=== PATIENT | male | born 1925 | race Caucasian/White ===

== ENCOUNTER → 2016-09-14 | Outpatient (CLI) | payer MEDICARE, OTHER ==
--- NOTE | 2016-09-14 11:37 | RAD ---
EXAM DESCRIPTION: Knee,Left Complete CLINICAL HISTORY: 89 years Male, OSTEOARTHRITIS IMPRESSION: 4 views of the left knee including standing radiographs are submitted for interpretation. There is severe tricompartment degenerative change with complete joint space loss of the medial and lateral compartments of left knee. Osteophytes are noted on today's study. No fracture or osseous lesion seen. Small joint effusion seen within the suprapatellar recess. Ostial calcification noted on today's study. Electronically signed by: Hugh Adam MD 09/14/2016 11:36 AM CDT
== END | disposition home or self-care (01) ==
LOC: RAD 07:53
PROVIDERS: ATTEND Orthopaedic Surgery
DX: M17.12 Unilateral primary osteoarthritis, left knee (principal)

== ENCOUNTER → 2016-09-17 | Outpatient (CLI) | payer MEDICARE, OTHER | LOC: LAB.O 09:23 | PROVIDERS: ATTEND Orthopaedic Surgery | DX: Z01.818 Encounter for other preprocedural examination (principal) ==

== ENCOUNTER 2016-10-07 06:00 | Inpatient (IN) | payer MEDICARE, OTHER ==
--- NOTE | 2016-10-05 11:46 | HP ---
CHIEF COMPLAINT: left knee pain. HISTORY OF PRESENT ILLNESS: Mr. Barron is an 89-year-old male with a history of knee pain that has been going on for years. He has had right total knee replacement and is requesting left total knee replacement. After discussing the risks, benefits and alternatives to that, the patient has given informed consent. PAST SURGICAL HISTORY: 1. Total knee arthroplasty. MEDICATIONS: 1. Metoprolol. 2. Lisinopril. 3. Pantoprazole. 4. Plavix. 5. Multiple different vitamins. 6. Pravastatin. 7. Gabapentin. ALLERGIES: NO KNOWN DRUG ALLERGIES. CODE STATUS: Full code. IMMUNIZATIONS: Up to date. SOCIAL HISTORY: The patient does not drink, smoke or use any illicit drugs. FAMILY HISTORY: None pertinent to today's complaint. REVIEW OF SYSTEMS: Negative except as indicated in the History of Present Illness. PHYSICAL EXAMINATION: VITAL SIGNS: Blood pressure 135/57. Pulse 56. Height 6'. Weight 153. MENTAL STATUS: The patient is awake, alert, and is able to give a good history and participate in the physical. The patient is oriented to person, place and time. SKIN: Normal tone and turgor. HEENT: Normocephalic, atraumatic. Pupils equal, round and reactive. Mucosal membranes are moist. NECK: Normal range of motion. No thyromegaly, no lymphadenopathy. CHEST: Normal respiratory excursion. CARDIAC: Regular rate and rhythm. No murmurs, rubs or gallops. MUSCULOSKELETAL: The bilateral upper extremities show full active range of motion without deformity. He has no pain and no crepitus. Sensation is intact. Strength is 5/5. They are warm and well perfused. The right lower extremity shows full range of motion of the hip. He has full extension of the knee with flexion to about 110 degrees. Sensation is intact. He has no laxity. The left knee shows severe pain with palpation, especially medially. He has crepitus throughout his range of motion. He has full extension with flexion to about 115 degrees. He has no varus/valgus or anterior/posterior laxity. He does have slight effusion. The hip and ankle show full painless range of motion without deformity or malalignment. IMAGING: X-rays show advanced arthritis. ASSESSMENT: 1. Osteoarthritis. PLAN: The plan at this point is for total knee arthroplasty. We have discussed the risks, benefits, and alternatives to that and the patient has given informed consent. [facility][id number] [facility]
[~2016-10-07 06:00] MED LIST: LACTATED RINGERS 1,000 ML ONE; SODIUM CHL 0.9% 50ML MIN-BAG+ 50 ML IVPB ONE; SODIUM CHLORIDE 0.9% 250ML 250 ML ONE; VANCOMYCIN HCL INJ 1,000 MG VIAL IVPB ONE; ceFAZolin SODIUM 1 GM VIAL ONE
[2016-10-07] MEDS ORDERED: TRANEXAMIC ACID 1,000 MG/10 ML VIAL ONE ×2 (06:04)
[2016-10-07] MEDS ORDERED: SODIUM CHL 0.9% 100ML MINI-BAG 100 ML IVPB ONE (06:05)
[2016-10-07] MEDS ORDERED: MORPHINE SULF *EPIDURAL* 1 MG/ML VIAL INJ ONE (06:11)
[2016-10-07] MEDS ORDERED: VANCOMYCIN HCL INJ 1,000 MG VIAL IVPB ONE ×3 (06:52→19:35)
[2016-10-07] MEDS: ceFAZolin SODIUM 1 GM VIAL ONE ×2 (07:53→08:48)
[2016-10-07] MEDS: VANCOMYCIN HCL INJ 1,000 MG VIAL IVPB ONE ×2 (07:53→08:48)
[2016-10-07] MEDS ORDERED: ceFAZolin SODIUM 1 GM VIAL IRRIG ONE (07:54)
[2016-10-07] MEDS: BUPIVACAINE 0.25% W/EPI 50 ML VIAL INJ ONE ×2 (07:55→09:21)
[2016-10-07] MEDS ORDERED: SODIUM CHLORIDE 0.9% (FLUSH) 10 ML SYG IV PRN (09:05)
[2016-10-07] MEDS ORDERED: PROMETHAZINE HCL INJ 12.5 MG in SODIUM CHLORIDE 0.9% 50ML 50 ML IVPB PRN (09:05)
[2016-10-07] MEDS ORDERED: HYDROcodone 5MG/APAP 325MG 1 EA TAB PO PRN (09:05)
[2016-10-07] MEDS ORDERED: ACETAMINOPHEN 325 MG TAB PO PRN (09:05)
[2016-10-07] MEDS ORDERED: TEMAZEPAM 15 MG CAP PO PRN (09:05)
[2016-10-07] MEDS ORDERED: BISACODYL SUPPOSITORY 10 MG PR PRN (09:05)
[2016-10-07] MEDS ORDERED: TRANEXAMIC ACID INJ 1,000 MG in SODIUM CHLORIDE 0.9% 100ML 100 ML IVPB ONE (09:05)
[2016-10-07] MEDS ORDERED: NALOXONE HCL INJ 0.4 MG/ML VIAL IV PRN (09:05)
[2016-10-07] MEDS ORDERED: CYCLOBENZAPRINE HCL 10 MG TAB PO PRN (09:05)
[2016-10-07] MEDS ORDERED: MORPHINE SULFATE INJ 10 MG/ML VIAL IV PRN (09:05)
[2016-10-07] MEDS ORDERED: ZOLPIDEM TARTRATE 5 MG TAB PO PRN (09:05)
[2016-10-07] MEDS ORDERED: BENZOCAINE-MENTH LOZ (CEPACOL) 1 EA LOZ MT PRN (09:05)
[2016-10-07] MEDS ORDERED: ACETAMINOPHEN 500 MG TAB PO PRN (09:05)
[2016-10-07] MEDS ORDERED: ALUMINUM & MAGNESIUM HYDROXIDE 30 ML UD PO PRN (09:05)
[2016-10-07] MEDS ORDERED: PROMETHAZINE HCL INJ 25 MG in SODIUM CHLORIDE 0.9% 50ML 50 ML IVPB PRN (09:05)
[2016-10-07] MEDS ORDERED: ONDANSETRON INJ 4 MG/2 ML VIAL IV PRN (09:05)
[2016-10-07] MEDS ORDERED: MORPHINE SULFATE INJ 10 MG/ML VIAL IM PRN (09:05)
[2016-10-07] MEDS ORDERED: MAGNESIUM HYDROXIDE 30 ML UD PO PRN (09:05)
[2016-10-07] MEDS ORDERED: MORPHINE PCA 1 MG/ML 100ML 1 BAG in PREMIX BAG 1 BAG IVPB SCH (09:30)
[2016-10-07] MEDS ORDERED: MORPHINE PCA 1 MG/ML 100 ML BAG IVPB ONE ×2 (09:54→10:00)
[2016-10-07] MEDS ORDERED: PROPOFOL 200 MG/20 ML VIAL IV ONE (12:00)
[2016-10-07] MEDS ORDERED: ceFAZolin SODIUM 1 GM VIAL ONE ×2 (12:12→19:36)
[2016-10-07] MEDS ORDERED: SODIUM CHLORIDE 0.9% 250ML 250 ML ONE ×2 (12:13→19:34)
[2016-10-07] MEDS ORDERED: SODIUM CHLORIDE 0.9% 100ML 100 ML IVPB ONE ×2 (12:13→19:36)
[2016-10-07] MEDS: DEX 5% W/NACL 0.45% 1000ML 1,000 ML IVS PRN (12:24)
--- NOTE | 2016-10-07 15:13 | PCM.CORE ---
Physician DVT/VTE - Nurse DVT Assessment & Total Each Risk Factor Represents 5 Points: Elective Arthtroplasty Each Risk Factor Represents 3 Points: Age over 75 years, Medical PT with Hx of [place], CHF, Severe infection/sepsis Each Risk Factor Represents 1 Point: Medical PT at Bed Rest DVT Assessment Score: 12 - 5 or more Very High Risk Treatments: Early Ambulation *, Sequential Compression Device Pharmacological: Enoxaparin 30mg SQ BID
[2016-10-07] MEDS: IV SET AND CAP CHANGE INJ INJ SCH (15:30)
[2016-10-07] MEDS: ceFAZolin SODIUM 2 GM in SODIUM CHLORIDE 0.9% 100ML 100 ML IVPB SCH (15:30)
--- NOTE | 2016-10-07 16:32 | PN ---
DATE: 10/07/16 SUBJECTIVE: Mr. Barron is doing very well. He is comfortable right now. OBJECTIVE: He is afebrile. Vital signs are stable. Dressing is clean, dry and intact. ASSESSMENT: 1. Status post total knee arthroplasty. PLAN: The plan is to begin weightbearing as tolerated on postoperative day 1. #[id number] [facility]
--- NOTE | 2016-10-07 16:40 | OP ---
DATE OF PROCEDURE: 10/07/16 PREOPERATIVE DIAGNOSIS: 1. Left knee osteoarthritis. POSTOPERATIVE DIAGNOSIS: 1. Left knee osteoarthritis. PROCEDURE: 1. Left total knee arthroplasty. SURGEON: Jaime Drake M.D. CANDY MAKER HELPER: Oniel Gibbs CST, -Yamilex ANESTHESIA: General anesthesia. COMPLICATIONS: None. FINDINGS: Severe arthritis of the knee. INDICATION FOR PROCEDURE: Mr. Barron has a long history of knee pain that has been getting progressively worse. Mr. Barron has had right total knee replacement and because of his ongoing left knee pain, he has requested left knee replacement. After discussing the risks, benefits, and alternatives to that he has given informed consent for that. DESCRIPTION OF PROCEDURE: The patient was brought to the Operating Room and placed in supine position. General anesthesia was induced and the patient's leg was sterilely prepped and draped. Following prepping and draping, the distal femur was exposed and using an intramedullary guide, the distal femoral cut was made. The appropriate sized cutting block was measured, pinned into place, and the anterior, posterior, and chamfer cuts were made. The ACL was transected and the tibia was subluxed. Both the medial and lateral menisci were removed. An intramedullary guide was used to make the proximal tibial cut. The appropriate sized base plate was placed and a trial polyethylene was placed. The trial femur was placed, the knee was reduced, and the knee was taken through a range of motion. The knee was stable in anterior, posterior, varus and valgus stress. The patella tracked anatomically without evidence of subluxation or dislocation. After trialing, the trial components were removed and the bony surfaces were thoroughly irrigated with saline. Following irrigation, the surfaces were dried and the final components were cemented into place. The excess cement was removed and the remaining cement was allowed to cure. The knee was again taken through a range of motion to confirm stability. The wound was then irrigated with saline and closure was performed using PDS to approximate the arthrotomy followed by closure of the subcutaneous tissues with a combination of running and interrupted Monocryl sutures. Sterile dressing was placed. The patient was awoken from anesthesia and taken to Recovery. POSTOPERATIVE INSTRUCTIONS: The patient will be weightbearing as tolerated on postoperative day 1. COMPONENTS: Testif triathlon knee size 7 femur, size 6 tibia, 11 mm insert. #[id number] [facility]
[2016-10-07] MEDS: VANCOMYCIN HCL INJ 1,000 MG in SODIUM CHLORIDE 0.9% 250ML 250 ML IVPB SCH (17:37)
[2016-10-07] MEDS ORDERED: PANTOPRAZOLE SODIUM TAB 40 MG PO ONE (19:35)
[2016-10-07] MEDS ORDERED: DOCUSATE CALCIUM 240 MG CAP ONE (19:35)
[2016-10-07] MEDS ORDERED: GABAPENTIN 300 MG CAP ONE (19:35)
[2016-10-07] MEDS ORDERED: ENOXAPARIN SODIUM 30 MG/0.3 ML SYG SUBCU ONE (19:35)
[2016-10-07] MEDS: DOCUSATE CALCIUM 240 MG CAP PO SCH (20:38)
[2016-10-07] MEDS: GABAPENTIN 300 MG CAP PO SCH (20:38)
[2016-10-07] MEDS: ENOXAPARIN SODIUM 30 MG/0.3 ML SYG SUBCU SCH (22:00)
[2016-10-08] MEDS: ceFAZolin SODIUM 2 GM in SODIUM CHLORIDE 0.9% 100ML 100 ML IVPB SCH ×2 (00:15→08:57)
[2016-10-08] MEDS ORDERED: PRAVASTATIN SODIUM 20 MG TAB ONE (05:30)
[2016-10-08] MEDS ORDERED: ASPIRIN TABLET 325 MG TAB ONE (05:30)
[2016-10-08] MEDS ORDERED: LISINOPRIL 5 MG TAB ONE (05:30)
[2016-10-08] MEDS ORDERED: METOPROLOL TARTRATE 50 MG TAB ONE (05:30)
[2016-10-08] MEDS: VANCOMYCIN HCL INJ 1,000 MG in SODIUM CHLORIDE 0.9% 250ML 250 ML IVPB SCH (05:55)
[2016-10-08] MEDS: HYDROcodone 10MG/APAP 325MG 1 EA TAB PO PRN ×2 (06:18→14:07)
[2016-10-08] MEDS: ASPIRIN TABLET 325 MG TAB PO SCH (06:18)
[2016-10-08] MEDS: PRAVASTATIN SODIUM 20 MG TAB PO SCH (06:18)
[2016-10-08] MEDS: METOPROLOL TARTRATE 50 MG TAB PO SCH (06:18)
[2016-10-08] MEDS: PANTOPRAZOLE SODIUM TAB 40 MG PO SCH (06:18)
[2016-10-08] MEDS: LISINOPRIL 5 MG TAB PO SCH (06:18)
--- NOTE | 2016-10-08 07:41 | RAD ---
EXAM DESCRIPTION: Knee,Left 2 or More Views CLINICAL HISTORY: 89 years,Male,TKA COMPARISON: September 14, 2016 FINDINGS: The left knee demonstrates recent total knee arthroplasty which appears unremarkable. No fracture seen. There is subcutaneous emphysema and swelling seen. Small amount of joint fluid.. IMPRESSION: Unremarkable recent left total knee arthroplasty Electronically signed by: Janusz Sams MD 10/08/2016 7:42 AM CDT
--- NOTE | 2016-10-08 07:50 | CONS ---
SUPERVISING PHYSICIAN: Emeterio Villalobos MD CHIEF COMPLAINT: Status post left total knee arthroplasty, postoperative care. HISTORY OF PRESENT ILLNESS: Mr. Barron is an 89-year-old, male patient with a longstanding history of knee pain for multiple years. He has previously had a right total knee replacement. He has continued to have pain in his left knee and is very active and has had multiple attempts at conservative treatment in the outpatient setting to receive symptomatic pain relief, but has failed to do so. He has now requested that he have a left total knee replacement by Dr. Drake. The patient had a left total knee arthroplasty performed today and was seen immediate postoperatively to assist in medical management. The patient was seen and found to be in stable condition. PAST MEDICAL HISTORY: 1. Hyperlipidemia. 2. Gastroesophageal reflux disease. 3. Coronary artery disease. 4. Hypertension. PAST SURGICAL HISTORY: 1. Coronary artery bypass grafts. 2. Cholecystectomy. 3. Right knee cyst excision. 4. Right total knee arthroplasty on 11/13/14. 5. Left total knee arthroplasty on 10/07/16 as noted above. CURRENT MEDICATIONS: 1. Neurontin 300 mg at bedtime. 2. Protonix 40 mg at breakfast. 3. Lisinopril 5 mg daily. 4. Plavix 75 mg in the morning. 5. Aspirin 325 mg daily. 6. Metoprolol tartrate 50 mg daily. 7. Pravastatin sodium 40 mg daily. ALLERGIES: NO KNOWN DRUG ALLERGIES. FAMILY HISTORY: Noncontributory. SOCIAL HISTORY: The patient has a history of smoking in the past approximately one pack a day, but quit many years previous. He denies any history of alcohol or illicit drug use. He does live in [place], [place]. 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 He is very active. REVIEW OF SYSTEMS: As per history of present illness. PHYSICAL EXAMINATION: VITAL SIGNS: Temperature 98.6. Pulse 53. Blood pressure 150/76. Respirations 18. O2 saturation 100% on nasal cannula 2 liters at rest. Admission weight 69.8 kg. GENERAL: The patient is seen in immediate postoperative state. He is alert and oriented times 3. He appears to be quite comfortable. HEENT: Hearing aids bilaterally. Oropharynx is pink, moist without any lesions. NECK: No jugular venous distention noted. CHEST: Lungs clear to auscultation bilaterally without any rhonchi, wheezes, or rales. CARDIOVASCULAR: Regular rate and rhythm without any appreciable murmurs, gallops, or rubs. ABDOMEN: Soft, nontender. Positive bowel sounds. EXTREMITIES: There is no cyanosis, clubbing or edema. Left knee has a bulky surgical dressing in place and as well has an Iceman. Pulses distally are strong. Capillary refill is brisk. NEUROLOGIC: The patient is alert and oriented times three. LABORATORY: Postoperative hemoglobin and hematocrit pending. ASSESSMENT: 1. Postoperative 0 from left total knee arthroplasty, having failed to respond to outpatient therapy and conservative measures, now requiring surgical intervention for pain control with surgery performed by Dr. Jaime Drake, orthopedic surgeon. 2. Gastroesophageal reflux disease. 3. Coronary artery disease. 4. Hypertension. PLAN: The patient will be followed medically as he progresses through his physical therapy along with physical therapy department and under the guidance of Dr. Jaime Drake, orthopedic surgeon. We will follow the patient closely medically and treat appropriately. Anticipate length of stay to be at least 2 to 3 days with possible discharge on this Wednesday or Wednesday. Until then, we will continue to monitor the patient closely and treat appropriately. #[id number] [facility]
[2016-10-08] MEDS ORDERED: SODIUM CHLORIDE 0.9% 100ML 100 ML IVPB ONE (08:38)
[2016-10-08] MEDS ORDERED: ceFAZolin SODIUM 1 GM VIAL ONE (08:38)
--- NOTE | 2016-10-08 08:54 | PN ---
DATE: 10/08/16 SUBJECTIVE: Mr. Barron is doing well and we just helped him get out of bed and he is having minimal discomfort. OBJECTIVE: Afebrile. Vital signs stable. Dressing is clean, dry and intact. ASSESSMENT: Status post total knee arthroplasty. PLAN: The plan is to continue with therapy today for weight-bearing as tolerated. #[id number] [facility]
[2016-10-08] MEDS: MAGNESIUM OXIDE 400 MG TAB PO SCH (08:58)
[2016-10-08] MEDS: CLOPIDOGREL 75 MG TAB PO SCH (08:58)
[2016-10-08] MEDS: ENOXAPARIN SODIUM 30 MG/0.3 ML SYG SUBCU SCH ×2 (08:59→20:31)
--- NOTE | 2016-10-08 15:46 | PN ---
DATE: 10/08/16 SUPERVISING PHYSICIAN: Emeterio Villalobos M.D. SUBJECTIVE: The patient is doing well. Just got off the CPM. Says his pain is well controlled. He has had just a little bit of nausea. He has been afebrile and has a good appetite. OBJECTIVE: VITAL SIGNS: T max 98.3, pulse 66, blood pressure 101/49, respirations 18, satting 100% on room air. I's and O's are fairly well balanced. Weight 69.8 kg. CHEST: Clear to auscultation. HEART: Regular rate and rhythm. ABDOMEN: Soft, non-tender. Positive bowel sounds. EXTREMITIES: Left knee has a surgical dressing in place. Pulses distally are strong with capillary refill brisk. NEUROLOGIC: He is alert and oriented times three. LABORATORY: Postoperative H&H shows hemoglobin 9.5, hematocrit 29.0. ASSESSMENT: 1. Postoperative day 1 from left total knee arthroplasty having failed to respond to outpatient therapy and conservative measures requiring surgical intervention for pain control with surgery performed by Dr. Jaime Drake. 2. Gastroesophageal reflux disease. 3. Coronary artery disease. 4. Hypertension. PLAN: Will continue to follow the patient medically as he progresses through his physical therapy portion of recovery. Anticipation of discharge possibly Wednesday or Wednesday. Until discharge, will continue to monitor and treat appropriately. #[id number] [facility]
[2016-10-08] MEDS: DEX 5% W/NACL 0.45% 1000ML 1,000 ML IVS PRN (19:52)
[2016-10-08] MEDS: DOCUSATE CALCIUM 240 MG CAP PO SCH (20:31)
[2016-10-08] MEDS: GABAPENTIN 300 MG CAP PO SCH (20:31)
[2016-10-09] MEDS: ASPIRIN TABLET 325 MG TAB PO SCH (06:19)
[2016-10-09] MEDS: METOPROLOL TARTRATE 50 MG TAB PO SCH (06:19)
[2016-10-09] MEDS: PANTOPRAZOLE SODIUM TAB 40 MG PO SCH (06:19)
[2016-10-09] MEDS: PRAVASTATIN SODIUM 20 MG TAB PO SCH (06:19)
[2016-10-09] MEDS: LISINOPRIL 5 MG TAB PO SCH (06:19)
[2016-10-09] MEDS: HYDROcodone 10MG/APAP 325MG 1 EA TAB PO PRN (06:20)
[2016-10-09] MEDS: MAGNESIUM OXIDE 400 MG TAB PO SCH (08:23)
[2016-10-09] MEDS: ENOXAPARIN SODIUM 30 MG/0.3 ML SYG SUBCU SCH ×2 (08:23→20:34)
[2016-10-09] MEDS: CLOPIDOGREL 75 MG TAB PO SCH (08:23)
[2016-10-09] MEDS: SODIUM CHLORIDE 0.9% (FLUSH) 10 ML SYG IV SCH ×2 (08:24→20:27)
--- NOTE | 2016-10-09 10:14 | PN ---
DATE: 10/09/16 SUBJECTIVE: He has no complaints today. OBJECTIVE: Afebrile. Vital signs stable. Wound is clean. There are no signs or symptoms of infection. ASSESSMENT: Status post total knee arthroplasty. PLAN: The plan at this point is for him to continue with therapy and potentially be discharged tomorrow. [facility][id number] [facility]
--- NOTE | 2016-10-09 19:10 | PN ---
DATE: 10/09/16 SUPERVISING PHYSICIAN: Emeterio Villalobos M.D. SUBJECTIVE: The patient is sitting in the bedside chair. He did well. He actually ambulated this morning and is having good pain control. He remains afebrile. OBJECTIVE: VITAL SIGNS: T max 98.2, pulse 72, blood pressure 114/72, respirations 18, satting 94% on room air. I's and O's show a positive balance of 209 with 1059 in, 850 out. Weight is 69.83 kg. CHEST: Clear to auscultation bilaterally. HEART: Regular rate and rhythm. ABDOMEN: Soft, non- tender. Positive bowel sounds. EXTREMITIES: No clubbing, cyanosis or edema. Left knee has a dressing in place that is clean and dry. There are no signs of infection. Pulses distally are strong. Capillary refill is brisk. NEUROLOGIC : He is alert and oriented times three. ASSESSMENT: 1. Postoperative day 2 from left total knee arthroplasty having failed to respond to outpatient therapy and conservative measures requiring surgical intervention for pain control with surgery performed by Dr. Jaime Drake. 2. Gastroesophageal reflux disease. 3. Coronary artery disease. 4. Hypertension. PLAN: Hopefully the patient can be discharged tomorrow as he is progressing well. There is discussion that he possibly could need an extra day or 2 of maybe Swing Bed, but we will reassess in the morning and see what Physical Therapy has to say. The patient is doing well and anxious to go home. His pain control is adequate. Until he is discharged, we will continue to monitor and treat appropriately. [facility][id number] [facility]
[2016-10-09] MEDS: DOCUSATE CALCIUM 240 MG CAP PO SCH (20:27)
[2016-10-09] MEDS: GABAPENTIN 300 MG CAP PO SCH (20:27)
[2016-10-10] MEDS: LISINOPRIL 5 MG TAB PO SCH (06:10)
[2016-10-10] MEDS: METOPROLOL TARTRATE 50 MG TAB PO SCH (06:10)
[2016-10-10] MEDS: ASPIRIN TABLET 325 MG TAB PO SCH (06:10)
[2016-10-10] MEDS: PRAVASTATIN SODIUM 20 MG TAB PO SCH (06:10)
[2016-10-10] MEDS: PANTOPRAZOLE SODIUM TAB 40 MG PO SCH (06:10)
[2016-10-10] MEDS: CLOPIDOGREL 75 MG TAB PO SCH (08:54)
[2016-10-10] MEDS: HYDROcodone 10MG/APAP 325MG 1 EA TAB PO PRN ×2 (08:54→13:57)
[2016-10-10] MEDS: MAGNESIUM OXIDE 400 MG TAB PO SCH (08:54)
[2016-10-10] MEDS: SODIUM CHLORIDE 0.9% (FLUSH) 10 ML SYG IV SCH ×2 (08:54→20:10)
[2016-10-10] MEDS: ENOXAPARIN SODIUM 30 MG/0.3 ML SYG SUBCU SCH ×2 (08:55→21:35)
[2016-10-10] MEDS: IV SET AND CAP CHANGE INJ INJ SCH (08:55)
--- NOTE | 2016-10-10 15:41 | PN ---
DATE: 10/10/16 SUBJECTIVE: Mr. Barron subjectively is doing pretty well. He is actually up walking right now. He is with minimal assist at this time. OBJECTIVE: He is afebrile. Vital signs are stable. Wound is clean. There are no signs or symptoms of infection. ASSESSMENT: 1. Status post total knee arthroplasty. PLAN: The plan at this point is for him to continue on weightbearing as tolerated and continue with physical therapy. Will make a decision over the next day or 2 on when he is to be discharged. #[id number] [facility]
--- NOTE | 2016-10-10 19:18 | PN ---
DATE: 10/10/16 SUPERVISING PHYSICIAN: Stiven Aaron M.D. SUBJECTIVE: The patient continues to make progress but slow in regards to rehabilitation. He remains afebrile. He has had good pain control. OBJECTIVE: VITAL SIGNS: T max 99.0, pulse 74, blood pressure 116/62, respirations 18, satting 96% on room air. I's and O's show a negative balance of 875 with 1200 in, 2075 out. Weight 69.83 kg. CHEST: Lungs are clear to auscultation. HEART: Regular rate and rhythm. ABDOMEN: Soft, non-tender. Positive bowel sounds. He has not yet had a bowel movement. EXTREMITIES: No clubbing, cyanosis or edema. Left knee has a bandage in place. There is some mild erythema but no obvious signs of infection. Pulse distally is strong. Capillary refill is brisk. NEUROLOGIC: He is alert and oriented times three. ASSESSMENT: 1. Postoperative day 3 from left total knee arthroplasty having failed to respond to outpatient therapy and conservative measures requiring surgical intervention for pain control with surgery performed by Dr. Jaime Drake. 2. Gastroesophageal reflux disease. 3. Coronary artery disease. 4. Hypertension. PLAN: Plan to give the patient Dulcolax and Milk of Magnesia tonight to assist with bowel movement. Will discuss with Physical Therapy today. The patient has slowly progressed but they will work with him in the morning and determine whether or not he is a candidate to go to Swing Bed or have an additional 1 to 2 days of therapy and to go home from that point. Until then, will continue to monitor the patient closely and treat appropriately. #[id number] [facility]
[2016-10-10] MEDS: DOCUSATE CALCIUM 240 MG CAP PO SCH (20:10)
[2016-10-10] MEDS: GABAPENTIN 300 MG CAP PO SCH (20:11)
[2016-10-10] MEDS ORDERED: MAGNESIUM HYDROXIDE 30 ML UD PO ONE (21:00)
[2016-10-10] MEDS ORDERED: BISACODYL SUPPOSITORY 10 MG PR ONE (21:00)
[2016-10-11] MEDS: PANTOPRAZOLE SODIUM TAB 40 MG PO SCH (06:39)
[2016-10-11] MEDS: ASPIRIN TABLET 325 MG TAB PO SCH (06:39)
[2016-10-11] MEDS: LISINOPRIL 5 MG TAB PO SCH (06:39)
[2016-10-11] MEDS: METOPROLOL TARTRATE 50 MG TAB PO SCH (06:39)
[2016-10-11] MEDS: PRAVASTATIN SODIUM 20 MG TAB PO SCH (06:39)
[2016-10-11] MEDS: ENOXAPARIN SODIUM 30 MG/0.3 ML SYG SUBCU SCH (08:41)
[2016-10-11] MEDS: MAGNESIUM OXIDE 400 MG TAB PO SCH (08:41)
[2016-10-11] MEDS: CLOPIDOGREL 75 MG TAB PO SCH (08:41)
[2016-10-11] MEDS: SODIUM CHLORIDE 0.9% (FLUSH) 10 ML SYG IV SCH (08:45)
[2016-10-11 11:48] VITALS: BP 155/64; TEMP 98.7; O2SAT 98
--- NOTE | 2016-10-11 15:38 | DS ---
DISCHARGE DIAGNOSIS ACUTE CARE/ADMISSION DIAGNOSIS SWING BED: 1. Status post left total knee arthroplasty secondary to advanced osteoarthritis. 2. Generalized weakness and debility. 3. Coronary artery disease. 4. Hypertension. 5. Hyperlipidemia. 6. Gastroesophageal reflux disease. HOSPITAL COURSE/HISTORY OF PRESENT ILLNESS: Mr. Barron is an 89 year-old man who underwent an elective total knee replacement on 10/07/16. Mr. Barron has advanced age, however he remains very active. 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 His left knee has undergone previous surgeries, multiple aspirations and joint injections, and he has ultimately failed repeat Synvisc and steroid shots in the knee. He has had arthroscopic surgery done on the knee that failed to give any senior living benefit. Due to all of these factors, myself as his primary care physician, Dr. Drake, his orthopedic surgeon, and the patient discussed this at length and felt that he would benefit from the knee replacement. This was undertaken on here at the [facility] and the patient's surgery was uneventful. Postoperatively, he has had lots more pain than he anticipated but otherwise has done okay. Due to his advanced age and just some generalized decline and maybe a little bit of underlying dementia, the patient's postoperative course has gone a little slower than we had anticipated. He still has a good potential for recovery and therefore his rehabilitation potential is felt to be good. We are going to put him on Swing Bed today so we can continue therapy here at the hospital. The patient and all of those involved in his care are in agreement. PAST MEDICAL HISTORY: 1. Coronary artery disease. 2. Osteoarthritis. 3. Hyperlipidemia. 4. Hypertension. 5. Gastroesophageal reflux disease. PAST SURGICAL HISTORY: 1. Right total knee arthroplasty in October 2014. 2. Left total knee arthroplasty 10/07/16. 3. Coronary artery bypass graft. 4. Cholecystectomy. 5. Arthroscopic surgery on the knees. CURRENT MEDICATIONS: 1. Tylenol 650 mg p.r.n. 2. Maalox 30 mL every 4 hours p.r.n. 3. Dulcolax suppository 10 mg p.r.n. 4. Surfak 240 mg every day. 5. Swanquarter 5/325 mg every 4 hours p.r.n. 6. Milk of Magnesia 30 mL p.r.n. 7. Plavix 75 mg every day. 8. Aspirin 325 mg every day. 9. Pravastatin 40 mg every day. 10. Metoprolol tartrate 50 mg every day. 11. Protonix 40 mg every day. 12. Lisinopril 5 mg every day. 13. Neurontin 300 mg every h.s. ALLERGIES: NO KNOWN DRUG ALLERGIES. FAMILY HISTORY: Noncontributory. PHYSICAL EXAMINATION: VITAL SIGNS: Temperature 99.8, pulse 74, blood pressure 128/56. GENERAL: The patient is awake, alert and in no distress. HEENT: Oropharynx is clear. NECK: Supple. CHEST: Clear to auscultation. CARDIOVASCULAR: Regular rate and rhythm. ABDOMEN: Soft, nondistended. There is mild diffuse tenderness without rebound or guarding. EXTREMITIES: The left knee has a little erythema surrounding the wound that looks appropriate for this postoperative stage. There is no drainage from the wound. He has a limited range of motion. There is no peripheral edema. NEUROLOGIC: Alert and oriented times three. PSYCHIATRIC: He is depressed. He becomes tearful during the interview. ASSESSMENT: See the list at the beginning of this dictation. PLAN: The patient will be placed on Swing Bed. His medications as listed above will all be continued. We will work hard to continue pain control. He is a little constipated right now, so we will use the p.r.n. medications to get his bowels moving. He will definitely benefit from probably 3 to 5 days of Swing Bed rehabilitation. #[id number] [facility]
== END 2016-10-11 11:50 | disposition swing bed (61) | DRG 470 ==
LOC: AMB 06:00 → MS 11:00
PROVIDERS: ADMIT Orthopaedic Surgery; ATTEND Orthopaedic Surgery
PROC: 0SRD0J9 Replacement of Left Knee Joint with Synthetic Substitute, Cemented, Open Approach (ICD-10-PCS; principal; 2016-10-07 07:00)
DX: M17.12 Unilateral primary osteoarthritis, left knee (principal); I12.9 Hypertensive chronic kidney disease with stage 1 through stage 4 chronic kidney disease, or unspecified chronic kidney disease; N18.3 Chronic kidney disease, stage 3 (moderate); E78.5 Hyperlipidemia, unspecified; I25.10 Atherosclerotic heart disease of native coronary artery without angina pectoris; K21.9 Gastro-esophageal reflux disease without esophagitis; F17.220 Nicotine dependence, chewing tobacco, uncomplicated; Z96.651 Presence of right artificial knee joint; Z95.0 Presence of cardiac pacemaker; Z95.1 Presence of aortocoronary bypass graft; Z79.02 Long term (current) use of antithrombotics/antiplatelets; Z79.82 Long term (current) use of aspirin; Z79.899 Other long term (current) drug therapy; Z97.4 Presence of external hearing-aid

== ENCOUNTER 2016-10-11 12:21 | Inpatient (IN) | payer MEDICARE, OTHER ==
[2016-10-11] MEDS ORDERED: ACETAMINOPHEN 325 MG TAB PO PRN (12:45)
[2016-10-11] MEDS ORDERED: BISACODYL SUPPOSITORY 10 MG PR PRN (12:46)
[2016-10-11] MEDS ORDERED: ALUMINUM & MAGNESIUM HYDROXIDE 30 ML UD PO PRN (12:46)
[2016-10-11] MEDS ORDERED: HYDROcodone 5MG/APAP 325MG 1 EA TAB PO PRN (12:47)
[2016-10-11] MEDS ORDERED: MAGNESIUM HYDROXIDE 30 ML UD PO PRN (12:48)
--- NOTE | 2016-10-11 15:39 | HP ---
DISCHARGE DIAGNOSIS ACUTE CARE/ADMISSION DIAGNOSIS SWING BED: 1. Status post left total knee arthroplasty secondary to advanced osteoarthritis. 2. Generalized weakness and debility. 3. Coronary artery disease. 4. Hypertension. 5. Hyperlipidemia. 6. Gastroesophageal reflux disease. HOSPITAL COURSE/HISTORY OF PRESENT ILLNESS: Mr. Barron is an 89 year-old man who underwent an elective total knee replacement on 10/07/16. Mr. Barron has advanced age, however he remains very active. 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 His left knee has undergone previous surgeries, multiple aspirations and joint injections, and he has ultimately failed repeat Synvisc and steroid shots in the knee. He has had arthroscopic surgery done on the knee that failed to give any chcf benefit. Due to all of these factors, myself as his primary care physician, Dr. Drake, his orthopedic surgeon, and the patient discussed this at length and felt that he would benefit from the knee replacement. This was undertaken on here at the [facility] and the patient's surgery was uneventful. Postoperatively, he has had lots more pain than he anticipated but otherwise has done okay. Due to his advanced age and just some generalized decline and maybe a little bit of underlying dementia, the patient's postoperative course has gone a little slower than we had anticipated. He still has a good potential for recovery and therefore his rehabilitation potential is felt to be good. We are going to put him on Swing Bed today so we can continue therapy here at the hospital. The patient and all of those involved in his care are in agreement. PAST MEDICAL HISTORY: 1. Coronary artery disease. 2. Osteoarthritis. 3. Hyperlipidemia. 4. Hypertension. 5. Gastroesophageal reflux disease. PAST SURGICAL HISTORY: 1. Right total knee arthroplasty in October 2014. 2. Left total knee arthroplasty 10/07/16. 3. Coronary artery bypass graft. 4. Cholecystectomy. 5. Arthroscopic surgery on the knees. CURRENT MEDICATIONS: 1. Tylenol 650 mg p.r.n. 2. Maalox 30 mL every 4 hours p.r.n. 3. Dulcolax suppository 10 mg p.r.n. 4. Surfak 240 mg every day. 5. Dilliner 5/325 mg every 4 hours p.r.n. 6. Milk of Magnesia 30 mL p.r.n. 7. Plavix 75 mg every day. 8. Aspirin 325 mg every day. 9. Pravastatin 40 mg every day. 10. Metoprolol tartrate 50 mg every day. 11. Protonix 40 mg every day. 12. Lisinopril 5 mg every day. 13. Neurontin 300 mg every h.s. ALLERGIES: NO KNOWN DRUG ALLERGIES. FAMILY HISTORY: Noncontributory. PHYSICAL EXAMINATION: VITAL SIGNS: Temperature 99.8, pulse 74, blood pressure 128/56. GENERAL: The patient is awake, alert and in no distress. HEENT: Oropharynx is clear. NECK: Supple. CHEST: Clear to auscultation. CARDIOVASCULAR: Regular rate and rhythm. ABDOMEN: Soft, nondistended. There is mild diffuse tenderness without rebound or guarding. EXTREMITIES: The left knee has a little erythema surrounding the wound that looks appropriate for this postoperative stage. There is no drainage from the wound. He has a limited range of motion. There is no peripheral edema. NEUROLOGIC: Alert and oriented times three. PSYCHIATRIC: He is depressed. He becomes tearful during the interview. ASSESSMENT: See the list at the beginning of this dictation. PLAN: The patient will be placed on Swing Bed. His medications as listed above will all be continued. We will work hard to continue pain control. He is a little constipated right now, so we will use the p.r.n. medications to get his bowels moving. He will definitely benefit from probably 3 to 5 days of Swing Bed rehabilitation. #[id number] [facility]
[2016-10-11] MEDS ORDERED: GABAPENTIN 300 MG CAP ONE (19:57)
[2016-10-11] MEDS ORDERED: PRAVASTATIN SODIUM 20 MG TAB ONE (19:57)
[2016-10-11] MEDS ORDERED: DOCUSATE CALCIUM 240 MG CAP ONE (19:57)
[2016-10-11] MEDS: GABAPENTIN 300 MG CAP PO SCH (20:22)
[2016-10-11] MEDS: PRAVASTATIN SODIUM 20 MG TAB PO SCH (20:22)
[2016-10-11] MEDS: DOCUSATE CALCIUM 240 MG CAP PO SCH (20:22)
[2016-10-12] MEDS ORDERED: PANTOPRAZOLE SODIUM TAB 40 MG PO ONE (02:42)
[2016-10-12] MEDS: PANTOPRAZOLE SODIUM TAB 40 MG PO SCH (06:26)
[2016-10-12] MEDS ORDERED: LISINOPRIL 5 MG TAB ONE (07:29)
[2016-10-12] MEDS ORDERED: ASPIRIN TABLET 325 MG TAB ONE (07:29)
[2016-10-12] MEDS ORDERED: CLOPIDOGREL 75 MG TAB ONE (07:29)
[2016-10-12] MEDS: METOPROLOL TARTRATE 50 MG TAB PO SCH (07:50)
[2016-10-12] MEDS: CLOPIDOGREL 75 MG TAB PO SCH (08:44)
[2016-10-12] MEDS: ASPIRIN TABLET 325 MG TAB PO SCH (08:44)
[2016-10-12] MEDS: LISINOPRIL 5 MG TAB PO SCH (08:44)
--- NOTE | 2016-10-12 13:22 | PN ---
DATE: 10-12-16 SUBJECTIVE: Mr. Barron' attitude has made a 180 degree turnaround. He feels like his pain is under great control. He has been able to ambulate through the hallway with the assistance of one nurse all the way to the nurses station and back. He did this a couple of times yesterday and already once today. His appetite is better , he had a large bowel movement this morning. His attitude is as mentioned, much, much better. OBJECTIVE: VITAL SIGNS: Afebrile. Vital signs are stable. KNEE: The left knee has a little surrounding erythema on the wound but this looks like to be a typical postoperative change. ASSESSMENT: 1. Status post left total knee arthroplasty. . 2. Hypertension. 3. Generalized weakness and debility. 4. Constipation. PLAN: The patient seems much more determined to work well with rehabilitation. He is having some pain but we are working with his pain medication to try to stay in front of it. He seems to be pretty sensitive to narcotics so we are trying to use Tylenol as much as we can and only using hydrocodone as necessary. We will continue to work out a good pain medication regimen with the patient so that when he goes home towards to the middle of the week he will be adequately controlled. #[id number] [facility]
--- NOTE | 2016-10-12 17:12 | PN ---
DATE: 10/12/16 SUBJECTIVE: Mr. Barron is much improved. OBJECTIVE: He is afebrile. Vital signs are stable. Wound is clean. There are no signs or symptoms of infection. He has bruising along the anterior aspect of the knee that has been present and actually appears better. Otherwise there are no new findings. ASSESSMENT: 1. Status post total knee arthroplasty. PLAN: At this point, he is doing well and we are going to continue his weightbearing status. Will see if he is ready to go tomorrow. #[id number] [facility]
[2016-10-12] MEDS: DOCUSATE CALCIUM 240 MG CAP PO SCH (20:17)
[2016-10-12] MEDS: PRAVASTATIN SODIUM 20 MG TAB PO SCH (20:17)
[2016-10-12] MEDS: GABAPENTIN 300 MG CAP PO SCH (20:17)
[2016-10-13] MEDS: PANTOPRAZOLE SODIUM TAB 40 MG PO SCH (06:17)
[2016-10-13] MEDS: METOPROLOL TARTRATE 50 MG TAB PO SCH (07:41)
[2016-10-13] MEDS: LISINOPRIL 5 MG TAB PO SCH (08:51)
[2016-10-13] MEDS: CLOPIDOGREL 75 MG TAB PO SCH (08:51)
[2016-10-13] MEDS: ASPIRIN TABLET 325 MG TAB PO SCH (08:51)
[2016-10-13] MEDS: NYSTATIN SUSPENSION 5 ML UD MT SCH ×4 (08:52→20:23)
--- NOTE | 2016-10-13 10:38 | PN ---
SUPERVISING PHYSICIAN: Emeterio Villalobos MD DATE: 10/13/16 SUBJECTIVE: The patient is sitting up in his chair in his hospital room. His is at the bedside. He states he has some pain still involved with his knee , but he is feeling much better since has gotten up and moved around. OBJECTIVE: VITAL SIGNS: Afebrile. Pulse 67. Blood pressure 171/67. Respiratory rate 20. O2 saturation 99% on room air. LUNGS: Clear to auscultation bilaterally. CARDIAC: Regular rate and rhythm. ABDOMEN: Soft, nontender, nondistended. Bowel sounds are positive. EXTREMITIES: Left knee has a dressing that is dry and intact. There is some surrounding erythema, but no other signs of complications. NEUROLOGIC: Awake, alert and oriented times three. ASSESSMENT: 1. Status post left total knee arthroplasty. 2. Hypertension. 3. Generalized weakness and debility. 4. Constipation. PLAN: We will continue present supportive care. The patient wanted to go home today, but we discussed his strengthening and conditioning and we all felt that it would be better for him to have two rounds of physical therapy today and we will reevaluate him tomorrow, so he will continue with physical therapy for strengthening and conditioning as previously ordered. He will go home on [facility]. We will reevaluate him tomorrow and discharge if indicated. We will continue to monitor the patient closely and followup as needed. Dr. Villalobos is the collaborating physician and available for consultation. #[id number] [facility]
[2016-10-13 10:41] VITALS: O2SAT 99
[2016-10-13] MEDS: PRAVASTATIN SODIUM 20 MG TAB PO SCH (20:23)
[2016-10-13] MEDS: DOCUSATE CALCIUM 240 MG CAP PO SCH (20:23)
[2016-10-13] MEDS: GABAPENTIN 300 MG CAP PO SCH (20:23)
[2016-10-14] MEDS: PANTOPRAZOLE SODIUM TAB 40 MG PO SCH (06:17)
[2016-10-14] MEDS: METOPROLOL TARTRATE 50 MG TAB PO SCH (07:45)
[2016-10-14] MEDS: CLOPIDOGREL 75 MG TAB PO SCH (08:27)
[2016-10-14] MEDS: LISINOPRIL 5 MG TAB PO SCH (08:27)
[2016-10-14] MEDS: NYSTATIN SUSPENSION 5 ML UD MT SCH ×2 (08:27→13:00)
[2016-10-14] MEDS: ASPIRIN TABLET 325 MG TAB PO SCH (08:27)
[2016-10-14] MEDS ORDERED: APIXABAN 2.5 MG TAB PO ONE ×2 (11:59→12:00)
[2016-10-14] MEDS ORDERED: RIVAROXABAN 10 MG TAB PO ONE (12:05)
--- NOTE | 2016-10-14 14:30 | DS ---
SUPERVISING PHYSICIAN: Emeterio Villalobos MD DISCHARGE DIAGNOSIS: 1. Status post left total knee arthroplasty. 2. Hypertension. 3. Generalized weakness and debility. 4. Constipation. HISTORY OF PRESENT ILLNESS: This is an 89-year-old male patient who was originally admitted to the hospital on 10/07/16 for a left total knee replacement. He has a longstanding history of knee pain for many years. He previously had a right total knee replacement. He continued to have pain in his left knee and after several attempts at conservative treatment, he requested that Dr. Drake, orthopedic surgeon, performed a left total knee replacement. He had no complications during his surgery and postoperatively, he had some pain issues. They were resolved with his narcotics and he went through strengthening and conditioning with physical therapy. He actually was discharged from the hospital on 10/11/16 and he was then admitted for Swing Bed status to the hospital for physical therapy, strengthening and conditioning. His physical therapy has progressed nicely and at this point he can be discharged home. DISCHARGE PLAN: the patient will be discharged home in good condition. He will continue his physical therapy for strengthening and conditioning with [facility]'s home health services. He will be discharged on his home medications as well as his hydrocodone and his Xarelto. He has a followup appointment with Dr. Aaron on 10/22/16 and an appointment with Dr. Drake in the next two weeks. He is to return to the hospital or call Dr. Drake or Dr. Aaron' office for any further problems or complications. DISCHARGE MEDICATIONS: 1. Plavix. 2. Aspirin. 3. Pravastatin. 4. Metoprolol tartrate. 5. Pantoprazole. 6. Lisinopril. 7. Gabapentin. 8. Acetaminophen. 9. Maalox. 10. Dulcolax. 11. Surfak. 12. Hydrocodone. 13. Milk of Magnesia. 14. Xarelto. Dr. Villalobos is the collaborating physician and available for consultation. #[id number] [facility]
[2016-10-14 21:03] VITALS: BP 124/56; TEMP 97.7
== END 2016-10-14 15:00 | disposition home health service (06) | DRG 561 ==
LOC: MS 12:21
PROVIDERS: ADMIT Family Medicine; ATTEND Nurse Practitioner Acute Care
DX: Z47.1 Aftercare following joint replacement surgery (principal); I10 Essential (primary) hypertension; R53.1 Weakness; K59.00 Constipation, unspecified; I25.10 Atherosclerotic heart disease of native coronary artery without angina pectoris; K21.9 Gastro-esophageal reflux disease without esophagitis; M19.90 Unspecified osteoarthritis, unspecified site; Z96.653 Presence of artificial knee joint, bilateral; Z95.1 Presence of aortocoronary bypass graft; Z79.02 Long term (current) use of antithrombotics/antiplatelets; Z79.82 Long term (current) use of aspirin; Z79.899 Other long term (current) drug therapy

== ENCOUNTER 2016-11-24 05:50 | Day surgery (SDC) | payer MEDICARE, OTHER ==
[2016-11-24] MEDS ORDERED: LACTATED RINGERS 1,000 ML ONE (08:52)
[2016-11-24 11:40] VITALS: TEMP 98.3
[2016-11-24] MEDS ORDERED: PROPOFOL 200 MG/20 ML VIAL IV ONE (12:00)
[2016-11-24 12:22] VITALS: BP 174/65; O2SAT 100
--- NOTE | 2016-11-25 08:29 | OP ---
DATE OF PROCEDURE: 11/24/16 PREOPERATIVE DIAGNOSIS: 1. Arthrofibrosis of the left knee. POSTOPERATIVE DIAGNOSIS: 1. Arthrofibrosis of the left knee. PROCEDURE: 1. Manipulation under anesthesia. SURGEON: Jaime Drake MD. MECHANICAL FITTER: Oniel Gibbs CST, SA-C. ANESTHESIA: Conscious sedation. COMPLICATIONS: None. FINDINGS: Preprocedure range of motion with flexion to 85 to 90 degrees. Postprocedure range of motion with flexion to approximately 120 degrees. INDICATION: Mr. Barron has a history of total knee replacement performed a few weeks ago. He has had contralateral total knee replacement. On his last knee, he had to undergo manipulation to ultimately obtain excellent range of motion. He does not participate real well in physical therapy. Because of that and the ongoing stiffness, we discussed the risks, benefits and alternatives to closed manipulation. Informed consent was obtained. PROCEDURE: The patient was brought to the Operating Room and placed in supine position. Conscious sedation was administered and the knee was flexed to the endpoint of approximately 120 degrees. It was near full extension as well. Fluoroscopic images were taken to ensure no change in the prosthesis. The patient was then awoken from conscious sedation and taken back to the Day Surgery Unit. POSTOPERATIVE INSTRUCTIONS: He will be doing physical therapy every day. He will followup with us in approximately ten days. #[id number] [facility]
== END 2016-11-24 12:08 | disposition home or self-care (01) ==
LOC: AMB 05:50
PROVIDERS: ATTEND Orthopaedic Surgery
DX: M24.662 Ankylosis, left knee (principal); I11.0 Hypertensive heart disease with heart failure; I50.9 Heart failure, unspecified; I25.10 Atherosclerotic heart disease of native coronary artery without angina pectoris; R01.1 Cardiac murmur, unspecified; G89.29 Other chronic pain; K21.9 Gastro-esophageal reflux disease without esophagitis; G62.9 Polyneuropathy, unspecified; Z95.1 Presence of aortocoronary bypass graft; Z96.653 Presence of artificial knee joint, bilateral; Z87.891 Personal history of nicotine dependence; Z79.82 Long term (current) use of aspirin; Z79.899 Other long term (current) drug therapy
CPT/HCPCS: 01380; 27570; 76000; 87070; J3490; J7120

== ENCOUNTER → 2016-12-14 | Outpatient (CLI) | payer MEDICARE, OTHER | END | disposition home or self-care (01) | LOC: GMA 14:19 | PROVIDERS: ATTEND Nurse Practitioner Family | DX: D50.9 Iron deficiency anemia, unspecified (principal) ==

== ENCOUNTER → 2016-12-16 | Outpatient (CLI) | payer MEDICARE, OTHER ==
--- NOTE | 2016-12-17 08:10 | CT ---
EXAM DESCRIPTION: Abdomen t/Pelvis w/o Contrast CLINICAL HISTORY: 89 years, 89 years, Male, Male, GENERALIZED ABDOMINAL PAIN COMPARISON: December 30, 2014 TECHNIQUE: CT of the abdomen and pelvis is performed according to our non contrast protocol This exam was performed according to our departmental dose-optimization program, which includes automated exposure control, adjustment of the mA and/or kV according to patient size and/or use of iterative reconstruction technique. FINDINGS: The lungs are adequately expanded without infiltrative changes or pulmonary masses. Pleural thickening and calcification in each posterior lung base is present including the pleural surface of each hemidiaphragm consistent with old inflammatory or infectious etiology or raising the possibility of previous exposure to asbestos. A soft tissue density mass is not apparent. No change from prior studies is seen. Small benign cyst in the left lobe of the liver is unchanged from prior study with surgical absence of the gallbladder without ductal dilation. A small normal spleen and accessory splenule is noted. The pancreas is normal in contour on noncontrast imaging. The adrenal glands are unremarkable. The kidneys are normal in contour without evidence of cyst or mass or obstruction. No stone disease is noted. Extensive aortic atherosclerosis is present without aortic aneurysm. Small bowel caliber is normal and mild diverticulosis of the left colon is present without acute inflammatory changes. The bladder is incompletely distended and modest prostatic hypertrophy with extensive prostatic calcifications noted. Advanced degenerative changes in the spine particularly at the lumbosacral junction as well as the upper lumbar spine is apparent. Bony metastatic disease or dense sclerosis of prostatic carcinoma is not apparent The anterior abdominal wall is intact. There is fatty atrophy of the upper aspect of the right rectus muscle in the subcostal region but no evidence of hernia. IMPRESSION: 1. Prior cholecystectomy with normal ductal system and stable benign cyst left lobe of the liver. 2. Extensive calcific pleural plaquing at each lung base along the diaphragm and posteriorly but unchanged from 2015 and consistent with old trauma, inflammatory change, or previous remote history of asbestos exposure. 3. Advanced degenerative changes of the spine and extensive prostatic calcification without focal mass. 4. Mild diverticulosis without evidence of diverticulitis or intra-abdominal inflammatory process. 5. Aortic atherosclerosis without aneurysm. Electronically signed by: Emeterio Gonzales MD 12/17/2016 8:08 AM CDT
== END | disposition home or self-care (01) ==
LOC: CT 08:50
PROVIDERS: ATTEND Nurse Practitioner Family
DX: R10.84 Generalized abdominal pain (principal)

== ENCOUNTER → 2017-01-12 | Outpatient (CLI) | payer MEDICARE, OTHER | END | disposition home or self-care (01) | LOC: GMAJ 10:23 | PROVIDERS: ATTEND Family Medicine | DX: D50.9 Iron deficiency anemia, unspecified (principal) ==

== ENCOUNTER → 2017-02-24 | Outpatient (CLI) | payer MEDICARE, OTHER ==
--- NOTE | 2017-02-25 16:30 | CT ---
EXAM DESCRIPTION: Chest w/o Contrast CLINICAL HISTORY: 89 years, Male, DYSPNEA COMPARISON: None TECHNIQUE: Thin-section noncontrast axial CT images are obtained according to our protocol. Reconstructed MPR images are created and reviewed as well. FINDINGS: Extensive, mainly peripheral interstitial lung disease most prominent in the lung bases. Numerous calcified pleural plaques bilateral. Moderate diffuse pulmonary emphysema. No mass or consolidation. Heart size normal. IMPRESSION: Pulmonary fibrosis Asbestos related pulmonary disease This exam was performed according to our departmental dose-optimization program, which includes automated exposure control, adjustment of the mA and/or kV according to patient size and/or use of iterative reconstruction technique. Electronically signed by: Yanick Reyes MD 02/25/2017 4:29 PM CDT
== END | disposition home or self-care (01) ==
LOC: LAB.O 09:54
PROVIDERS: ATTEND Internal Medicine Pulmonary Disease
DX: R06.00 Dyspnea, unspecified (principal)

== ENCOUNTER 2017-03-13 10:23 | Emergency (ER) | payer MEDICARE, OTHER ==
[2017-03-13 10:55] VITALS: BP 115/49; TEMP 97.8; O2SAT 98
[2017-03-13] MEDS ORDERED: NEOMYCIN-BACITRACIN-POLYMYXIN 0.9 GM UD TOP ONE (11:07)
--- NOTE | 2017-03-13 11:16 | ED.PDOC ---
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 He went to clean the wound on his left cheek yesterday evening and it started bleeding. He takes aspirin and Plavix both. The wound has been bleeding since yesterday. He has been holding pressure for a long time. The bleeding does not appear to be arterial. The patient has agreed to chemical cautery. Silver nitrate was applied and hemostasis has been obtained at this time. Timing/Duration: 24 hours Severity: mild Improving Factors: nothing Worsening Factors: nothing Associated Symptoms: denies symptoms Allergies/Adverse Reactions: Allergies NO KNOWN ALLERGY Allergy (Verified 03/13/17 10:37) Home Medications: Ambulatory Orders Aspirin 325 mg PO DAILY@0711/12/14 Clopidogrel Bisulfate [Plavix] 75 mg PO QA 11/12/14 Metoprolol Tartrate 25 mg PO DAILY@0711/12/14 Pravastatin Sodium 40 mg PO DAILY@0711/12/14 Lisinopril 5 mg PO DAILY@0710/05/16 Pantoprazole Tablet [Protonix] 40 mg PO ACBK 10/05/16 Folic Acid 1 mg PO DAILY 03/13/17 Review of Systems - Review of Systems Constitutional: States: no symptoms reported EENTM: States: no symptoms reported Respiratory: States: no symptoms reported Cardiology: States: no symptoms reported Gastrointestinal/Abdominal: States: no symptoms reported Genitourinary: States: no symptoms reported Musculoskeletal: States: no symptoms reported Skin: States: see HPI Neurological: States: no symptoms reported Endocrine: States: no symptoms reported Hematologic/Lymphatic: States: no symptoms reported All other Systems: No Change from Baseline Past Medical History (General) - Patient Medical History Hx Seizures: No Hx Stroke: No Hx Asthma: No Hx of COPD: No 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 Hx Congestive Heart Failure: No Hx Pacemaker: No Hx Hypertension: Yes Hx Diabetes: No Hx Gastroesophageal Reflux: Yes Hx MRSA: No Surgical History: coronary bypass surgery, other - Vaccination History Hx Influenza Vaccination: Yes - 2017 Hx Pneumococcal Vaccination: Yes - Social History Hx Tobacco Use: Yes - Quit 1986 Hx Alcohol Use: No Hx Substance Use: No Hx Physical Abuse: No Hx Emotional Abuse: No Family Medical History - Family History Mother Family History: No Known Living Status: Physical Exam - Physical Exam General Appearance: Alert, Comfortable, No apparent distress Eye Exam: bilateral normal Ears, Nose, Throat: hearing grossly normal - chronically mildly decreased bilaterally, normal ENT inspection, normal pharynx Neck: full range of motion Respiratory: no respiratory distress, no accessory muscle use Cardiovascular/Chest: no edema Peripheral Pulses: radial,right: 2+, radial,left: 2+ Rectal Exam: deferred Extremity: non-tender, no pedal edema, normal capillary refill Neurologic: reception II-XII nml as tested, alert, normal mood/affect, oriented x 3 Skin Exam: normal color - 1.3 cm wound from skin cancer removal with central area of venous bleeding. Estimated blood loss likely from yesterday approximately 15 cc according to history and current bleeding. Comments: Vital Signs - 24 hr 03/13/17 10:24 Temperature 97.8 F Pulse Rate [ 52 L Left Radial] Respiratory 16 Rate Blood Pressure 115/49 [Right Arm] O2 Sat by Pulse 98 Oximetry Progress - Progress Progress: 03/13/17 11:17 the patient's an 89-year-old male presenting with bleeding at the surgical site to his left cheek. Silver nitrate was applied after risks and benefits were explained. Hemostasis appears to be achieved. The wound is covered with Band-Aid and antibiotic ointment. For now he is going to remain on his aspirin and Plavix. If he has a recurrence of the bleeding then this may have to be stopped. ER warnings were given for any worsening. He should keep follow-up with his project management engineer. Departure - Departure Clinical Impression: Complication of dermatological procedure Disposition: Discharge to Home or Self Care Condition: Fair Departure Forms: ED Discharge - Pt. Copy, Patient Portal Self Enrollment Diet: regular diet Activity: increase activity as tolerated Referrals: Stiven Aaron MD [Primary Care Provider] - 1-2 Weeks Home Medications: Ambulatory Orders Aspirin 325 mg PO DAILY@0700 11/12/14 Clopidogrel Bisulfate [Plavix] 75 mg PO QAM 11/12/14 Metoprolol Tartrate 25 mg PO DAILY@0711/12/14 Pravastatin Sodium 40 mg PO DAILY@0700 11/12/14 Lisinopril 5 mg PO DAILY@0700 10/05/16 Pantoprazole Tablet [Protonix] 40 mg PO ACBK 10/05/16 Folic Acid 1 mg PO DAILY 03/13/17 Additional Instructions: the patient's an 89-year-old male presenting with bleeding at the surgical site to his left cheek. Silver nitrate was applied after risks and benefits were explained. Hemostasis appears to be achieved. The wound is covered with Band-Aid and antibiotic ointment. For now he is going to remain on his aspirin and Plavix. If he has a recurrence of the bleeding then this may have to be stopped. ER warnings were given for any worsening. He should keep follow-up with his project management engineer.
== END 2017-03-13 11:22 | disposition home or self-care (01) ==
LOC: ER 10:23
DX: L76.21 Postprocedural hemorrhage of skin and subcutaneous tissue following a dermatologic procedure (principal); I10 Essential (primary) hypertension; K21.9 Gastro-esophageal reflux disease without esophagitis; Z79.82 Long term (current) use of aspirin; Z79.02 Long term (current) use of antithrombotics/antiplatelets; Z95.1 Presence of aortocoronary bypass graft; Z87.891 Personal history of nicotine dependence

== ENCOUNTER 2017-03-14 00:39 | Emergency (ER) | payer MEDICARE, OTHER ==
--- NOTE | 2017-03-14 00:59 | ED.PDOC ---
History of Present Illness - General Time Seen by Provider: 03/14/17 00:40 Source: patient Exam Limitations: no limitations - History of Present Illness Initial Comments: the patient is an 89-year-old male presenting to the emergency room for the second time in the last 24 hours secondary to facial bleeding. He is bleeding again from a site on his left cheek where he had a skin cancer cut out it is approximately 1.3-1.4 centimeters in diameter. I saw him earlier this morning and we did chemical coronary with silver nitrate. Apparently that maintained hemostasis for approximately 15 hours however when he went to lay down at night to go to bed he appears to may start bleeding again. Estimated blood loss this time is probably either 6 cc. He doestake Plavix and aspirin. Timing/Duration: 1/2 hour Severity: moderate Improving Factors: nothing Worsening Factors: nothing Associated Symptoms: denies symptoms Allergies/Adverse Reactions: Allergies NO KNOWN ALLERGY Allergy (Verified 03/13/17 10:37) Home Medications: Ambulatory Orders Aspirin 325 mg PO DAILY@0711/12/14 Clopidogrel Bisulfate [Plavix] 75 mg PO QA 11/12/14 Metoprolol Tartrate 25 mg PO DAILY@0711/12/14 Pravastatin Sodium 40 mg PO DAILY@0711/12/14 Lisinopril 5 mg PO DAILY@69910/05/16 Pantoprazole Tablet [Protonix] 40 mg PO ACBK 10/05/16 Folic Acid 1 mg PO DAILY 03/13/17 Review of Systems - Review of Systems Constitutional: States: no symptoms reported EENTM: States: no symptoms reported Respiratory: States: no symptoms reported Cardiology: States: no symptoms reported Gastrointestinal/Abdominal: States: no symptoms reported Genitourinary: States: no symptoms reported Musculoskeletal: States: no symptoms reported Skin: States: see HPI Neurological: States: no symptoms reported Endocrine: States: no symptoms reported All other Systems: No Change from Baseline Past Medical History (General) - Patient Medical History Hx Seizures: No Hx Stroke: No Hx Asthma: No Hx of COPD: No 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 Hx Congestive Heart Failure: No Hx Pacemaker: No Hx Hypertension: Yes Hx Diabetes: No Hx Gastroesophageal Reflux: Yes Hx MRSA: No - Vaccination History Hx Influenza Vaccination: Yes - 2016 Hx Pneumococcal Vaccination: Yes - Social History Hx Tobacco Use: Yes - Quit 1986 Hx Alcohol Use: No Hx Substance Use: No Hx Physical Abuse: No Hx Emotional Abuse: No Family Medical History - Family History Mother Family History: No Known Living Status: Physical Exam - Physical Exam General Appearance: Alert, Comfortable, No apparent distress Eye Exam: bilateral normal Ears, Nose, Throat: hearing grossly normal - ildly decreased bilaterally Neck: full range of motion Respiratory: no respiratory distress, no accessory muscle use Cardiovascular/Chest: normal peripheral pulses, no edema, other - regular rate Peripheral Pulses: radial,right: 2+, radial,left: 2+ Rectal Exam: deferred Extremity: normal range of motion, no pedal edema, normal capillary refill Neurologic: alert, normal mood/affect, oriented x 3 Skin Exam: normal color - cheek laceration as above Progress - Progress Progress: 03/14/17 00:59 the patient is presenting for the second time today for a hemorrhage from a cancer excision site on his left cheek. I had originally used chemical cautery which did apparently worked for about 15 hours. After risks and benefits were explained the wound was cleaned. One [id number] suture and 1 simple suture of 4-0 Ethilon were used to close in the cavity of the wound. There was still a very small amount of bleeding from the puncture sites. Dermabond was used over the wound additionally. Once the Dermabond comes off and the sutures will need to come out in around 7-10 days. He is given one dose of Bactrim here tonight to prevent infection. ER warnings are given for any worsening of any form. Departure - Departure Clinical Impression: Postoperative complication Qualifiers: Surgical complication system/body Area: skin Surgical complication type: hemorrhage Procedure type: dermatologic Qualified Code(s): L76.21 - Postprocedural hemorrhage of skin and subcutaneous tissue following a dermatologic procedure Disposition: Discharge to Home or Self Care Condition: Fair Diet: regular diet Activity: increase activity as tolerated Referrals: Stiven Aaron MD [Primary Care Provider] - 1-2 Weeks Home Medications: Ambulatory Orders Aspirin 325 mg PO DAILY@69911/12/14 Clopidogrel Bisulfate [Plavix] 75 mg PO QAM 11/12/14 Metoprolol Tartrate 25 mg PO DAILY@69911/12/14 Pravastatin Sodium 40 mg PO DAILY@69911/12/14 Lisinopril 5 mg PO DAILY@10/05/17 Pantoprazole Tablet [Protonix] 40 mg PO ACBK 10/05/16 Folic Acid 1 mg PO DAILY 03/13/17 Additional Instructions: the patient is presenting for the second time today for a hemorrhage from a cancer excision site on his left cheek. I had originally used chemical cautery which did apparently worked for about 15 hours. After risks and benefits were explained the wound was cleaned. One fbnayy-cs-geqau suture and 1 simple suture of 4-0 Ethilon were used to close in the cavity of the wound. There was still a very small amount of bleeding from the puncture sites. Dermabond was used over the wound additionally. Once the Dermabond comes off and the sutures will need to come out in around 7-10 days. He is given one dose of Bactrim here tonight to prevent infection. ER warnings are given for any worsening of any form.
[2017-03-14] MEDS ORDERED: SULFA/TRIMETH 800/160 (DS) TAB 1 EA TAB PO ONE (01:02)
[2017-03-14 04:41] VITALS: BP 146/82; TEMP 96.8; O2SAT 94
== END 2017-03-14 01:30 | disposition home or self-care (01) ==
LOC: ER 00:39
DX: L76.21 Postprocedural hemorrhage of skin and subcutaneous tissue following a dermatologic procedure (principal); I10 Essential (primary) hypertension; Z95.1 Presence of aortocoronary bypass graft; Z87.891 Personal history of nicotine dependence; Z79.82 Long term (current) use of aspirin; Z79.02 Long term (current) use of antithrombotics/antiplatelets; Z79.899 Other long term (current) drug therapy

== ENCOUNTER 2017-05-06 17:33 | Emergency (ER) | payer MEDICARE, OTHER ==
[2017-05-06] MEDS ORDERED: LIDOCAINE 1% 10 ML VIAL INJ ONE (17:40)
[2017-05-06 18:10] VITALS: TEMP 98.2; O2SAT 99
[2017-05-06] MEDS ORDERED: NEOMYCIN-BACITRACIN-POLYMYXIN 0.9 GM UD TOP ONE (18:35)
--- NOTE | 2017-05-06 19:06 | CONS ---
DATE OF CONSULTATION: 05/06/17 HISTORY OF PRESENT ILLNESS: The patient is an 89 year-old male that underwent resection of a believed to be skin malignancy on his proximal left bridge of his nose. It began bleeding this morning. He was seen in my office where it was cauterized with silver nitrate sticks and did well until this evening when he bent over to help his at the [facility] and it began bleeding. He is here and I have been asked to see and treat him. The wound bed has released multiple places of bleeding with no single discrete arterial bleeder. The wound bed was cleaned with saline and then bbwfmy-ec-lhkzs sutures were basically performed in approximately 60% of the circumference of the incision which controlled the bleeding. It was started at approximately the 1 o'clock position around to the 7 o'clock position. There was good hemostasis at the end. It was covered with a pressure dressing and triple antibiotic ointment. PLAN: He was to keep it in place, use an ice pack tonight and call my office to be seen tomorrow late morning or early afternoon. #[id number] RACHEL
--- NOTE | 2017-05-06 19:20 | ED.PDOC ---
History of Present Illness - General Chief Complaint: Wound Recheck Stated Complaint: Bleeding from postop incision Time Seen by Provider: 05/06/17 18:46 Source: patient, RN notes reviewed, Vital Signs reviewed Additional Information: Pt with recent skin surgery performed by Dr. Contreras. Pt reports wound began bleeding and he only got it to stop with a lot of direct pressure and then he covered it with gauze. However, he said it would still be leaking blood and he decided to come in to be seen for it. On exam, fresh clot seen causing a 1 cm x 1 cm nodular mass that was friable. - History of Present Illness Timing/Duration: just prior to arrival Severity: moderate Location: face Improving Factors: other - direct pressure Worsening Factors: movement Associated Symptoms: denies symptoms, swelling/mass/lumps - large clot formation Allergies/Adverse Reactions: Allergies NO KNOWN ALLERGY Allergy (Verified 05/06/17 18:10) Home Medications: Ambulatory Orders Aspirin 325 mg PO DAILY@0711/12/14 Clopidogrel Bisulfate [Plavix] 75 mg PO QA 11/12/14 Metoprolol Tartrate 25 mg PO DAILY@0711/12/14 Pravastatin Sodium 40 mg PO DAILY@0711/12/14 Lisinopril 5 mg PO DAILY@0710/05/16 Pantoprazole Tablet [Protonix] 40 mg PO ACBK 10/05/16 Folic Acid 1 mg PO DAILY 03/13/17 Review of Systems - Review of Systems Constitutional: States: no symptoms reported EENTM: States: see HPI Respiratory: States: no symptoms reported Cardiology: States: no symptoms reported Gastrointestinal/Abdominal: States: no symptoms reported Genitourinary: States: no symptoms reported Musculoskeletal: States: no symptoms reported Skin: States: see HPI Neurological: States: no symptoms reported Endocrine: States: no symptoms reported Hematologic/Lymphatic: States: no symptoms reported Past Medical History (General) - Patient Medical History Hx Seizures: No Hx Stroke: No Hx Asthma: No Hx of COPD: No 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 Hx Congestive Heart Failure: No Hx Pacemaker: No Hx Hypertension: Yes Hx Diabetes: No Hx Gastroesophageal Reflux: Yes 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 Bandage removed revealing a mass with fibrin deposition and fresh blood and clot that was friable. 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 Contreras called and I asked him to come in to assist with the care of this patient. Dr. Contreras was able to correct the defect and the wound became hemostatic. Dr. Contreras dictated his procedure note. He advised the patient to apply ice packs and see him in the clinic on 07 May 2017. Pt then stable for d/c home with return precautions. Departure - Departure Clinical Impression: Complication of dermatological procedure Time of Disposition: 19:16 Disposition: Discharge to Home or Self Care Condition: Fair Departure Forms: ED Discharge - Pt. Copy, Patient Portal Self Enrollment Referrals: Brody Contreras MD [Active Staff] - 1-2 Days Home Medications: Ambulatory Orders Aspirin 325 mg PO DAILY@69911/12/14 Clopidogrel Bisulfate [Plavix] 75 mg PO QA 11/12/14 Metoprolol Tartrate 25 mg PO DAILY@69911/12/14 Pravastatin Sodium 40 mg PO DAILY@69911/12/14 Lisinopril 5 mg PO DAILY@69910/05/16 Pantoprazole Tablet [Protonix] 40 mg PO ACBK 10/05/16 Folic Acid 1 mg PO DAILY 03/13/17 Additional Instructions: Follow instructions given to you by Dr. Contreras. Ice pack to wound. No bending over or straining. Follow-up with Dr. Contreras tomorrow - Wednesday.
[2017-05-06 19:31] VITALS: BP 201/86
== END 2017-05-06 19:30 | disposition home or self-care (01) ==
LOC: ER 17:33
DX: L76.21 Postprocedural hemorrhage of skin and subcutaneous tissue following a dermatologic procedure (principal); K21.9 Gastro-esophageal reflux disease without esophagitis; I10 Essential (primary) hypertension; Z85.828 Personal history of other malignant neoplasm of skin; Z79.82 Long term (current) use of aspirin; Z79.899 Other long term (current) drug therapy; Z87.891 Personal history of nicotine dependence; Z95.1 Presence of aortocoronary bypass graft

== ENCOUNTER → 2017-06-25 | Outpatient (CLI) | payer MEDICARE, OTHER | LOC: GMAJ 12:29 | PROVIDERS: ATTEND Family Medicine | DX: M10.9 Gout, unspecified (principal) ==